=== PATIENT | male | born 1955 | race Caucasian/White ===

== ENCOUNTER 2016-05-10 05:20 | Inpatient (IN) | payer BC ==
[2016-04-22 13:09] LABS: HEMATOCRIT 41.1 % (42.0-52.0); HEMOGLOBIN 13.8 gm/dL (14.0-18.0); MCH 31.5 pg (26.0-34.0); MCHC 33.6 g/dL (28.0-37.0); MCV 93.7 fL (80.0-100.0); RBC 4.39 mil/uL (4.50-6.00); RDW 12.9 % (10.5-14.5); WBC 8.1 thou/uL (4.0-11.0)
[2016-04-22 13:10] LABS: URINE BILIRUBIN NEGATIVE (Negative); URINE BLOOD NEGATIVE (Negative); URINE COLOR YELLOW; URINE GLUCOSE-RANDOM* NEGATIVE (Negative); URINE KETONES NEGATIVE (Negative); URINE LEUKOCYTES-REFLEX NEGATIVE (Negative); URINE PROTEIN (DIPSTICK) NEGATIVE (Negative); URINE UROBILINOGEN 0.2 E.U./dl (0.2-1.0)
[2016-04-22 13:20] LABS: PROTIME 10.3 Seconds (9.3-11.4)
[2016-04-22 13:45] LABS: ALBUMIN 3.8 g/dL (3.4-5.0); CALCIUM 8.5 mg/dL (8.5-10.1); CREATININE 0.8 mg/dL (0.6-1.3); POTASSIUM 4.8 mmol/L (3.5-5.1)
[~2016-05-10] VITALS: Ht 177.8 cm; Wt 75.3 kg
--- NOTE | ~2016-05-10 | O ---
[facility] [place] [address] OPERATIVE REPORT Name: MALINI MITCHELL Room #: 150-8 ADM IN M.R.#: [id number] Admission: 05/10/16 Attend Phys: Yusuf Solitario MD Discharge: Date of : 51 Report #: [id number] THIS REPORT FOR: //name// CC: [facility] physician/PCP Yusuf Solitario DATE OF SERVICE: 05/10/2016 PREOPERATIVE DIAGNOSIS: Right hip degenerative joint disease, severe. POSTOPERATIVE DIAGNOSIS: Right hip degenerative joint disease, severe. OPERATIVE PROCEDURE: Right total hip arthroplasty. SURGEON: Yusuf Solitario MD. OCCUPATIONAL THERAPIST REHAB MANAGER: Salty Acharya, nurse practitioner. INDICATIONS FOR OCCUPATIONAL THERAPIST REHAB MANAGER: During the course of operation, extensive manipulation, retraction, and limb positioning was required. This was afforded to me by my real estate assistant. ANESTHESIA: General. INDICATIONS: See hospital H and P. IMPLANTS UTILIZED: We used a Cook123 hip system. We used a Secur-Fit Max 132 degree neck angle, size 9 stem with a -5 ceramic Biolox femoral head, with a Tritanium solid back shell of 56 outer diameter and a Trident X3 elevated rim insert. DESCRIPTION OF PROCEDURE: After adequate general anesthesia had been obtained, the patient was placed in lateral decubitus position with right hip up. The hip was then prepped and draped in the usual meticulous sterile fashion. Posterolateral incision was made in the hip, subQ divided sharply. Hemostasis obtained with electrocautery. IT band gluteal fascia was divided. This layer was retracted with a Charnley retractor. Hip was then internally rotated, and external rotators were detached, tagged and retracted posteriorly. The capsule was likewise released, tagged and retracted posteriorly. Hip was dislocated. Soft tissue removed from the base of the femoral neck. A starter awl placed at the base of the neck and advanced to the canal. Canal was sequentially reamed to a size 9. Neck osteotomy performed at appropriate height. At this time, attention was directed to acetabulum. It was circumferentially exposed. Labrum was excised. It was sequentially reamed to a size 54. We got a good press fit with 54 trial, so I reamed to 55 and irrigated copiously, and [facility] [address] [place] [address] OPERATIVE REPORT Name: MALINI MITCHELL Room #: 150-8 ADM IN M.R.#: [id number] Admission: 05/10/16 Attend Phys: Yusuf Solitario MD Discharge: Date of : 51 Report #: [id number] then implanted the shell into position. Cap screw was placed. Hip was irrigated copiously once again, and the liner was put into position. Attention was redirected to the femur. It was sequentially broached to a size 9, excellent torsional stability was obtained. We did a trial and with a -5 neck length, we had the best stability parameters and equalization of leg lengths. The trial components were then removed. Hip was irrigated copiously and the permanent stem implanted into place, and the head was then impacted in to place. The hip was then reduced. The capsule and external rotators were reattached to the trochanter by placing the drill holes in trochanter, passing the sutures through the drill holes, and tying them over a bone bridge. IT band gluteal fascia was then reapproximated with a combination of interrupted [id number] #1 Vicryl, as well as running #[address] We did place a drain deep to this layer, as well as subq drain. SubQ was closed with 2-0 Monocryl. Skin was closed with kendra. Sterile compressive dressing was complied. By: [id number] Yusfu Solitario MD /nt
[~2016-05-10 05:20] MED LIST: ADVIL FLU & BO1 EACH; APAP650 PO; ASPIRIN81 M2 PO; BACTROBAN22 GM TP; COLACE100 MG PO; IBUPROFEN 200200 M1 PO; LIVALO2 MG PO; OMEPRAZOLE40 MG PO; PERCOCET 10-321 EACH PO
[2016-05-10 09:30] VITALS: BP 152/86
[2016-05-10 20:00] VITALS: BP 120/70
[2016-05-11 04:00] VITALS: BP 110/68
[2016-05-11 05:33] LABS: HEMATOCRIT 34.3 % (42.0-52.0); HEMOGLOBIN 11.8 gm/dL (14.0-18.0); MCH 32.1 pg (26.0-34.0); MCHC 34.3 g/dL (28.0-37.0); MCV 93.5 fL (80.0-100.0); RBC 3.66 mil/uL (4.50-6.00); WBC 9.5 thou/uL (4.0-11.0)
[2016-05-11 09:45] VITALS: BP 116/74
[2016-05-11 15:54] VITALS: BP 119/67
[2016-05-11 20:00] VITALS: BP 111/61
[2016-05-12 04:00] VITALS: BP 109/64
[2016-05-12 05:22] LABS: HEMATOCRIT 31.2 % (42.0-52.0); HEMOGLOBIN 10.8 gm/dL (14.0-18.0); MCH 32.5 pg (26.0-34.0); MCHC 34.6 g/dL (28.0-37.0); MCV 93.9 fL (80.0-100.0); RBC 3.32 mil/uL (4.50-6.00); RDW 13.2 % (10.5-14.5); WBC 7.1 thou/uL (4.0-11.0)
[2016-05-12 07:30] VITALS: BP 93/48
[2016-05-12] MEDS ORDERED: ULTRAM 50MG TAB50 MG PO (08:05)
[2016-05-12] MEDS ORDERED: XARELTO10 MG PO (08:06)
[2016-05-12 14:18] VITALS: BP 93/48
[2016-05-12 14:39] VITALS: BP 93/48
== END 2016-05-12 15:30 | disposition home or self-care (01) | DRG 470 ==
LOC: 5S 05:20 → TBA 05:20 → PRE 08:36 → 5S 15:26
PROVIDERS: Orthopaedic Surgery
PROC: 0SR904A Replacement of Right Hip Joint with Ceramic on Polyethylene Synthetic Substitute, Uncemented, Open Approach (ICD-10-PCS; principal; 2016-05-10)
DX: M16.0 Bilateral primary osteoarthritis of hip (principal); I10 Essential (primary) hypertension; J45.909 Unspecified asthma, uncomplicated; M19.90 Unspecified osteoarthritis, unspecified site; E78.5 Hyperlipidemia, unspecified; K21.9 Gastro-esophageal reflux disease without esophagitis; F10.10 Alcohol abuse, uncomplicated; Z96.651 Presence of right artificial knee joint; Z79.899 Other long term (current) drug therapy; Z98.818 Other dental procedure status; Z90.49 Acquired absence of other specified parts of digestive tract; Z79.82 Long term (current) use of aspirin; Z28.21 Immunization not carried out because of patient refusal; Z82.49 Family history of ischemic heart disease and other diseases of the circulatory system; Z87.891 Personal history of nicotine dependence
CPT/HCPCS: 10785; 50010; 50101; 50382; 50414; 50455; 50612; 50855; 50939; 51412; 51771; 53000; 55388; 56521; 56525; 56527; 56530; 57095; 62110; 62900; 70005

== ENCOUNTER → 2017-04-05 | Outpatient (CLI) | payer BC ==
[~2017-04-05] MED LIST changes: +ULTRAM 50MG TAB50 MG PO; +XARELTO10 MG PO
== END ==
LOC: RAD 14:15
DX: J18.9 Pneumonia, unspecified organism (principal)

== ENCOUNTER → 2020-01-08 | Outpatient (CLI) | payer OTHER | LOC: CAT 14:07 | PROVIDERS: ATTEND Internal Medicine Cardiovascular Disease | DX: Z13.6 Encounter for screening for cardiovascular disorders (principal); E78.00 Pure hypercholesterolemia, unspecified; I25.10 Atherosclerotic heart disease of native coronary artery without angina pectoris ==

== ENCOUNTER → 2020-12-21 | Outpatient (CLI) | payer BC, OTHER | LOC: SJCVCIMAG 09:41 | PROVIDERS: ATTEND Internal Medicine Cardiovascular Disease | DX: I73.9 Peripheral vascular disease, unspecified (principal); M79.604 Pain in right leg; M79.605 Pain in left leg; K21.9 Gastro-esophageal reflux disease without esophagitis; E78.00 Pure hypercholesterolemia, unspecified; Z82.49 Family history of ischemic heart disease and other diseases of the circulatory system; Z88.8 Allergy status to other drugs, medicaments and biological substances; Z87.891 Personal history of nicotine dependence; Z72.89 Other problems related to lifestyle ==